=== PATIENT | male | born 1960 | race Two or more races ===

== ENCOUNTER 2018-08-10 12:20 | Emergency (ER) | payer BC ==
[2018-08-10] MEDS ORDERED: Lisinopril/Hydrochlorothiazide 10-12.5 MG Tab PO ONE ×2 (12:56→13:15)
--- NOTE | 2018-08-10 13:05 | EDM.PDOC ---
ED HPI GENERAL MEDICAL PROBLEM - General Chief Complaint: General Stated Complaint: HYPERTENSION Time Seen by Provider: 08/10/18 12:32 Source of Information: Reports: Patient History Limitations: Reports: No Limitations - History of Present Illness INITIAL COMMENTS - FREE TEXT/NARRATIVE: HISTORY AND PHYSICAL: History of present illness: Patient is a 58-year-old male who presents to the emergency room with complaints of reported high blood pressure. Prior to arrival he was attending a preemployment screening. During the examination he was informed that his blood pressure was 180s over 120s. He states he does have a history of hypertension, although had stopped the antihypertensive medications approximately 2 years ago as he states "my blood pressure was good". He states he has not taken any medication since that time. He is asymptomatic agreeable to evaluation. Patient denies any fever, chills, headache, change in vision, syncope or near syncope. Denies any chest pain, back pain, shortness of breath or cough. Denies any abdominal pain, nausea, vomiting, diarrhea, constipation or dysuria. Patient has been eating and drinking appropriately. Review of systems: As per history of present illness and below otherwise all systems reviewed and negative. Past medical history: As per history of present illness and as reviewed below otherwise noncontributory. Surgical history: As per history of present illness and as reviewed below otherwise noncontributory. Social history: See social history for further information Family history: As per history of present illness and as reviewed below otherwise noncontributory. Physical exam: General: Well-developed and well-nourished 58-year-old -[place] male. Alert and oriented. Nontoxic appearing and in no acute distress. HEENT: Atraumatic, normocephalic, pupils equal and reactive bilaterally, negative for conjunctival pallor or scleral icterus, mucous membranes moist, TMs normal bilaterally, throat clear, neck supple, nontender, trachea midline. No drooling or trismus noted. No meningeal signs. No hot potato voice noted. Lungs: Clear to auscultation, breath sounds equal bilaterally, chest nontender. Heart: S1S2, regular rate and rhythm without overt murmur Abdomen: Soft, nondistended, nontender. Negative for masses or hepatosplenomegaly. Negative for costovertebral tenderness. Pelvis: Stable nontender. Genitourinary: Deferred. Rectal: Deferred. Skin: Intact, warm, dry. No lesions or rashes noted. Extremities: Atraumatic, moves all extremities per self without difficulty or deficits, negative for cords or calf pain. Neurovascular unremarkable. Neuro: Awake, alert, oriented. Cranial nerves II through XII unremarkable. Cerebellum unremarkable. Motor and sensory unremarkable throughout. Exam nonfocal. Notes: Lab work is unremarkable. EKG is unremarkable. Blood pressure does remain elevated. He was previously on 3 different antihypertensive medications although cannot recall the other 2. Restarted the lisinopril/HCTZ. Patient is asymptomatic and would like to be discharged to home. Current BP is 163/113. Involved Dr Salvador on this case. We discussed the importance of follow-up with his primary care provider for reevaluation of his blood pressure and possible restarting the additional antihypertensive. We discussed signs and symptoms that would prompt him to return to the emergency room. Supportive care measures were reviewed and discussed. Voices understanding and is agreeable to plan of care. Denies any further questions or concerns at this time. Diagnostics: CBC, CMP, UA, EKG Therapeutics: Lisinopril/HCTZ Prescription: Lisinopril/HCTZ Impression: Hypertension Plan: 1. Lab work was normal today. 2. You have been restarted on one blood pressure medication today. With her blood pressure being as high as it was, you may need further medication management. Please follow-up with a primary care provider for reevaluation of your blood pressure and further management. 3. Return to the ED as needed and as discussed. Definitive disposition and diagnosis as appropriate pending reevaluation and review of above. - Related Data Allergies Allergy/AdvReac Type Severity Reaction Status Date / Time No Known Allergies Allergy Verified 08/10/18 12:30 Home Meds: Home Meds Lisinopril/Hydrochlorothiazide [Lisinopril-Hctz 10-12.5 mg Tab] 1 each PO DAILY #30 tablet 08/10/18 [Rx] Past Medical History - Past Health History Medical/Surgical History: Denies Medical/Surgical History Cardiovascular History: Reports: Hypertension Social & Family History - Family History Family Medical History: Noncontributory - Tobacco Use Smoking Status *Q: Never Smoker - Recreational Drug Use Recreational Drug Use: No ED ROS GENERAL - Review of Systems Review Of Systems: ROS reveals no pertinent complaints other than HPI. ED EXAM, GENERAL - Physical Exam Exam: See Below (See dictation) Course - Vital Signs Last Recorded V/S: Last Vital Signs Temp 96.9 F 08/10/18 12:26 Pulse 67 08/10/18 14:19 Resp 18 08/10/18 14:19 BP 173/126 H 08/10/18 14:19 Pulse Ox 98 08/10/18 14:19 - Orders/Labs/Meds Orders: Active Orders 24 hr Category Date Time Status EKG 12 Lead [EKG Documentation Completion] [RC] STAT Care 08/10/18 12:54 Active Labs: Laboratory Tests 08/10/18 08/10/18 08/10/18 Range/Units 13:00 13:00 13:04 WBC 4.43 (4.0-11.0) K/uL RBC 5.26 (4.50-5.90) M/uL Hgb 14.3 (13.0-17.0) g/dL Hct 43.2 (38.0-50.0) % MCV 82.1 (80.0-98.0) fL MCH 27.2 (27.0-32.0) pg MCHC 33.1 (31.0-37.0) g/dL RDW Std Deviation 43.4 (28.0-62.0) fl RDW Coeff of Marlin 15 (11.0-15.0) % Plt Count 132 L (150-400) K/uL Neut % (Auto) 47.1 L (48.0-80.0) % Lymph % (Auto) 42.7 H (16.0-40.0) % Banner % (Auto) 6.1 (0.0-15.0) % Eos % (Auto) 3.2 (0.0-7.0) % Baso % (Auto) 0.9 (0.0-1.5) % Neut # (Auto) 2.1 (1.4-5.7) K/uL Lymph # (Auto) 1.9 (0.6-2.4) K/uL Banner # (Auto) 0.3 (0.0-0.8) K/uL Eos # (Auto) 0.1 (0.0-0.7) K/uL Baso # (Auto) 0.0 (0.0-0.1) K/uL Nucleated RBC % 0.0 /100WBC Nucleated RBCs # 0 K/uL Sodium 143 (136-148) mmol/L Potassium 3.4 L (3.5-5.1) mmol/L Chloride 106 (98-107) mmol/L Carbon Dioxide 25.5 (21.0-32.0) mmol/L BUN 14 (7.0-18.0) mg/dL Creatinine 1.0 (0.8-1.3) mg/dL Est Cr Clr Drug Dosing 73.44 mL/min Estimated GFR (MDRD) > 60.0 ml/min Glucose 103 (74-106) mg/dL Calcium 8.7 (8.5-10.1) mg/dL Total Bilirubin 1.1 H (0.2-1.0) mg/dL AST 29 (15-37) IU/L ALT 42 (14-63) IU/L Alkaline Phosphatase 75 (46-116) U/L Total Protein 7.5 (6.4-8.2) g/dL Albumin 4.1 (3.4-5.0) g/dL Globulin 3.4 (2.6-4.0) g/dL Albumin/Globulin Ratio 1.2 (0.9-1.6) Urine Color YELLOW Urine Appearance CLEAR Urine pH 7.5 (5.0-8.0) Ur Specific Hampton 1.020 (1.001-1.035) Urine Protein NEGATIVE (NEGATIVE) mg/dL Urine Glucose (UA) NEGATIVE (NEGATIVE) mg/dL Urine Ketones NEGATIVE (NEGATIVE) mg/dL Urine Occult Blood NEGATIVE (NEGATIVE) Urine Nitrite NEGATIVE (NEGATIVE) Urine Bilirubin NEGATIVE (NEGATIVE) Urine Urobilinogen 0.2 (<2.0) EU/dL Ur Leukocyte Esterase NEGATIVE (NEGATIVE) Meds: Medications Discontinued Medications Generic Name Dose Route Start Last Admin Trade Name Freq PRN Reason Stop Dose Admin Lisinopril/HCTZ 1 tab 08/10/18 12:56 08/10/18 13:22 Lisinopril-Hctz 10-12.5 Mg PO 08/10/18 12:57 Not Given ONETIME ONE Hydrochlorothiazide 12.5 mg 08/10/18 13:15 08/10/18 13:11 Hydrochlorothiazide PO 08/10/18 13:16 12.5 mg ONETIME ONE Administration Lisinopril 10 mg 08/10/18 13:15 08/10/18 13:10 Prinivil PO 08/10/18 13:16 10 mg ONETIME ONE Administration Departure - Departure Time of Disposition: 14:12 Disposition: Home, Self-Care 01 Clinical Impression: Hypertension Qualifiers: Hypertension type: essential hypertension Qualified Code(s): I10 - Essential ( primary) hypertension - Discharge Information Prescriptions: Lisinopril/Hydrochlorothiazide [Lisinopril-Hctz 10-12.5 mg Tab] 1 each PO DAILY #30 tablet Instructions: Hypertension, [id number] Referrals: PCP,None [Primary Care Provider] - Forms: ED Department Discharge Additional Instructions: The following information is given to patients seen in the emergency department who are being discharged to home. This information is to outline your options for follow-up care. We provide all patients seen in our emergency department with a follow-up referral. The need for follow-up, as well as the timing and circumstances, are variable depending upon the specifics of your emergency department visit. If you don't have a primary care physician on staff, we will provide you with a referral. We always advise you to contact your personal physician following an emergency department visit to inform them of the circumstance of the visit and for follow-up with them and/or the need for any referrals to a consulting specialist. The emergency department will also refer you to a specialist when appropriate. This referral assures that you have the opportunity for follow-up care with a specialist. All of these measure are taken in an effort to provide you with optimal care, which includes your follow-up. Under all circumstances we always encourage you to contact your private physician who remains a resource for coordinating your care. When calling for follow-up care, please make the office aware that this follow-up is from your recent emergency room visit. If for any reason you are refused follow-up, please contact the [facility] Emergency Department at and asked to speak to the emergency department charge nurse. [facility] [address] [place] [id number] [address] 1. Lab work was normal today. 2. You have been restarted on one blood pressure medication today. With her blood pressure being as high as it was, you may need further medication management. Please follow-up with a primary care provider for reevaluation of your blood pressure and further management. 3. Return to the ED as needed and as discussed. - My Orders Last 24 Hours: My Active Orders 08/10/18 12:54 EKG 12 Lead [EKG Documentation Completion] [RC] STAT - Assessment/Plan Last 24 Hours: My Active Orders 08/10/18 12:54 EKG 12 Lead [EKG Documentation Completion] [RC] STAT
[2018-08-10] MEDS ORDERED: Hydrochlorothiazide 12.5 MG Cap PO ONE (13:15)
[2018-08-10] MEDS ORDERED: Lisinopril 10 MG Tab PO ONE (13:15)
[2018-08-10 13:29] LABS: CHLORIDE,CL 106 mmol/L (98-107); SODIUM,NA 143 mmol/L (136-148)
[2018-08-10 14:19] VITALS: BP 173/126
== END 2018-08-10 14:37 | disposition home or self-care (01) ==
LOC: MW.ED 12:20
DX: I10 Essential (primary) hypertension (principal); Z79.899 Other long term (current) drug therapy
CPT/HCPCS: 36415; 80053; 81003; 85025; 93005; 99285; A9270; 99283

== ENCOUNTER 2019-08-27 16:22 | Emergency (ER) | payer BC ==
[2019-08-27] MEDS ORDERED: Dexamethasone 4 MG Tab PO ONE (18:52)
--- NOTE | 2019-08-27 18:57 | EDM.PDOC ---
ED HPI GENERAL MEDICAL PROBLEM - General Chief Complaint: ENT Problem Stated Complaint: SORE THROAT Time Seen by Provider: 08/27/19 18:15 - History of Present Illness INITIAL COMMENTS - FREE TEXT/NARRATIVE: History of present illness: Patient presents with throat pain with swallowing and radiates to his right ear he denies any difficulty with breathing no cough no fevers no runny nose throat hurts when he swallows he has not taken anything for it nothing makes it better or worse Review of systems: As per history of present illness and below otherwise all systems reviewed and negative. Past medical history: As per history of present illness and as reviewed below otherwise noncontributory. Surgical history: As per history of present illness and as reviewed below otherwise noncontributory. Social history: No reported history of drug or alcohol abuse. Family history: As per history of present illness and as reviewed below otherwise noncontributory. Physical exam: HEENT: Atraumatic, normocephalic, pupils reactive, negative for conjunctival pallor or scleral icterus, mucous membranes moist, throat clear, neck supple, nontender, trachea midline. Posterior pharyngeal erythema there is no asymmetry the uvula is midline he has anterior lymphadenopathy on the right that is tender the TM on the right is normal Lungs: Clear to auscultation, breath sounds equal bilaterally, chest nontender. Heart: S1S2, regular, negative for clicks, rubs, or JVD. Abdomen: Soft, nondistended, nontender. Negative for masses or hepatosplenomegaly. Negative for costovertebral tenderness. Pelvis: Stable nontender. Genitourinary: Deferred. Rectal: Deferred. Extremities: Atraumatic, negative for cords or calf pain. Neurovascular unremarkable. Neuro: Awake, alert, oriented. Cranial nerves II through XII unremarkable. Cerebellum unremarkable. Motor and sensory unremarkable throughout. Exam nonfocal. Diagnostics: [] Therapeutics: [] Impression: Pharyngitis [] Plan: Decadron in the ED amoxicillin at home follow-up with primary care [] Definitive disposition and diagnosis as appropriate pending reevaluation and review of above. right ear/throat Pain Score (Numeric/FACES): 8 - Related Data Allergies Allergy/AdvReac Type Severity Reaction Status Date / Time No Known Allergies Allergy Verified 08/27/19 16:45 Home Meds: Home Meds Lisinopril/Hydrochlorothiazide [Lisinopril-Hctz 10-12.5 mg Tab] 1 each PO DAILY #30 tablet 08/10/18 [Rx] Amoxicillin 500 mg PO TID #30 capsule 08/27/19 [Rx] Past Medical History - Past Health History Medical/Surgical History: Denies Medical/Surgical History Cardiovascular History: Reports: Hypertension - Infectious Disease History Infectious Disease History: Reports: None Social & Family History - Family History Family Medical History: Noncontributory - Tobacco Use Smoking Status *Q: Never Smoker - Recreational Drug Use Recreational Drug Use: No ED ROS GENERAL - Review of Systems Review Of Systems: See Below ED EXAM, GENERAL - Physical Exam Exam: See Below Course - Vital Signs Last Recorded V/S: Last Vital Signs Temp 36.3 C 08/27/19 16:45 Pulse 89 08/27/19 16:45 Resp 18 08/27/19 16:45 BP 194/128 H 08/27/19 16:45 Pulse Ox 97 08/27/19 16:45 - Orders/Labs/Meds Meds: Medications Discontinued Medications Generic Name Dose Route Start Last Admin Trade Name Maurilio PRN Reason Stop Dose Admin Dexamethasone 8 mg 08/27/19 18:52 Dexamethasone PO 08/27/19 18:53 ONETIME ONE Departure - Departure Time of Disposition: 18:55 Disposition: DC/Tfer to [facility] [id number] Condition: Good Clinical Impression: Pharyngitis - Discharge Information *PRESCRIPTION DRUG MONITORING PROGRAM REVIEWED*: Not Applicable *COPY OF PRESCRIPTION DRUG MONITORING REPORT IN PATIENT RICCARDO: Not Applicable Instructions: Pharyngitis, [id number] Referrals: PCP,None [Primary Care Provider] - Additional Instructions: The following information is given to patients seen in the emergency department who are being discharged to home. This information is to outline your options for follow-up care. We provide all patients seen in our emergency department with a follow-up referral. The need for follow-up, as well as the timing and circumstances, are variable depending upon the specifics of your emergency department visit. If you don't have a primary care physician on staff, we will provide you with a referral. We always advise you to contact your personal physician following an emergency department visit to inform them of the circumstance of the visit and for follow-up with them and/or the need for any referrals to a consulting specialist. The emergency department will also refer you to a specialist when appropriate. This referral assures that you have the opportunity for follow-up care with a specialist. All of these measure are taken in an effort to provide you with optimal care, which includes your follow-up. Under all circumstances we always encourage you to contact your private physician who remains a resource for coordinating your care. When calling for follow-up care, please make the office aware that this follow-up is from your recent emergency room visit. If for any reason you are refused follow-up, please contact the [facility] Emergency Department at and asked to speak to the emergency department charge nurse. [facility] [address] [place] [id number] [facility] [address] [place] [id number] Sepsis Event Note (ED) - Evaluation Sepsis Screening Result: No Definite Risk - Focused Exam Vital Signs: Vital Signs Temp Pulse Resp BP Pulse Ox 08/27/19 16:45 36.3 C 89 18 194/128 H 97
[2019-08-27] MEDS ORDERED: Amoxicillin 250 MG/5 ML Susp 150 ML Bottle PO ONE (19:07)
[2019-08-27] MEDS ORDERED: Amoxicillin 500 MG Cap ONE (19:10)
[2019-08-27] MEDS ORDERED: Amoxicillin 500 MG Cap PO ONE (19:14)
[2019-08-28 00:13] VITALS: BP 199/115; PULSE 88
== END 2019-08-27 19:11 ==
LOC: MW.ED 16:22
DX: J02.9 Acute pharyngitis, unspecified (principal); I10 Essential (primary) hypertension; Z79.899 Other long term (current) drug therapy
CPT/HCPCS: 99282; A9270; J8540

== ENCOUNTER 2019-08-28 21:08 | Emergency (ER) | payer BC ==
[2019-08-28] MEDS ORDERED: Morphine 4 MG/ML Syringe IVPUSH ONE (21:45)
[2019-08-28] MEDS ORDERED: Ketorolac 15 MG/ML SDV IVPUSH ONE (21:45)
[2019-08-28] MEDS ORDERED: Sodium Chloride 0.9% 10 ML Syringe FLUSH PRN (21:45)
[2019-08-28] MEDS ORDERED: Sodium Chloride 0.9% 2.5 ML Syringe FLUSH PRN (21:45)
[2019-08-28] MEDS ORDERED: Lactated Ringers 1,000 ML IV ONE (21:45)
--- NOTE | 2019-08-28 21:48 | EDM.PDOC ---
ED HPI GENERAL MEDICAL PROBLEM - General Chief Complaint: ENT Problem Stated Complaint: PHARYNGITIS WORSENING Time Seen by Provider: 08/28/19 21:23 Source of Information: Reports: Patient History Limitations: Reports: No Limitations - History of Present Illness INITIAL COMMENTS - FREE TEXT/NARRATIVE: 59-year-old male with history of hypertension presents with persistent sore th roat for 2 days. He was seen here 2 days ago and prescribed amoxicillin. Symptoms have not improved. Pain is moderate, constant, non-radiating, exacerbated by swallowing, and associated with difficulty swallowing. He denies fever, chills, nausea. CP, SOB, Cough. He took his HTN meds today. ROS: A 10-point review of systems, other than pertinent positives and negatives as stated per HPI, is otherwise negative PHYSICAL EXAM General: AOx4, GCS = 15, moderate distress HEENT: mild hoarseness, dry mucous membrane, right peritonsillar swelling. tender to right parotid gland, no stridor, no tenderness or induration in the submandibular space. Mallampati score = 3 Neck: supple, no meningismus, no Kernig or Brudzinski Cardiac: S1S2 tachycardia Respiratory: CTAB, no crackles or rales, no wheezing Abdomen: Soft, nontender, no rebound or guarding, nondistended, no pulsatile mass. Back: nontender Musculoskeletal: NVI distally, no deformity Neuro: No focal deficits Right Face/Facial Pain Score (Numeric/FACES): 10 - Related Data Allergies Allergy/AdvReac Type Severity Reaction Status Date / Time No Known Allergies Allergy Verified 08/28/19 21:24 Home Meds: Home Meds Lisinopril/Hydrochlorothiazide [Lisinopril-Hctz 10-12.5 mg Tab] 1 each PO DAILY #30 tablet 08/10/18 [Rx] Amoxicillin 500 mg PO TID #30 capsule 08/27/19 [Rx] Past Medical History - Past Health History Medical/Surgical History: Denies Medical/Surgical History HEENT History: Reports: None Cardiovascular History: Reports: Hypertension Respiratory History: Reports: None Gastrointestinal History: Reports: None Genitourinary History: Reports: None Musculoskeletal History: Reports: None Neurological History: Reports: None Psychiatric History: Reports: None Endocrine/Metabolic History: Reports: None Hematologic History: Reports: None Immunologic History: Reports: None Oncologic (Cancer) History: Reports: None Dermatologic History: Reports: None - Infectious Disease History Infectious Disease History: Reports: None - Past Surgical History Head Surgeries/Procedures: Reports: None Social & Family History - Family History Family Medical History: Noncontributory - Tobacco Use Smoking Status *Q: Never Smoker Second Hand Smoke Exposure: No - Caffeine Use Caffeine Use: Reports: None - Recreational Drug Use Recreational Drug Use: No ED ROS ENT - Review of Systems Review Of Systems: Comprehensive ROS is negative, except as noted in HPI. ED EXAM, ENT - Physical Exam Exam: See Below (see dictation) Course - Vital Signs Last Recorded V/S: Last Vital Signs Temp 100.2 F 08/28/19 21:28 Pulse 102 H 08/29/19 00:08 Resp 16 08/28/19 23:12 BP 164/87 H 08/29/19 00:08 Pulse Ox 95 08/28/19 23:12 - Orders/Labs/Meds Orders: Active Orders 24 hr Category Date Time Status Clindamycin Phosphate [Cleocin] 600 mg Med 08/29/19 00:41 Ordered Sodium Chloride 0.9% [Normal Saline] 50 ml IV ONETIME Sodium Chloride 0.9% [Saline Flush] Med 08/28/19 21:45 Active 10 ml FLUSH ASDIRECTED PRN Sodium Chloride 0.9% [Saline Flush] Med 08/28/19 21:45 Active 2.5 ml FLUSH ASDIRECTED PRN Saline Lock Insert [OM.PC] Stat Oth 08/28/19 21:45 Ordered Medication Orders Clindamycin Phosphate 600 mg/ (Sodium Chloride) 54 mls @ 100 mls/hr IV ONETIME ONE Stop: 08/29/19 01:13 Sodium Chloride (Saline Flush) 10 ml FLUSH ASDIRECTED PRN PRN Reason: Keep Vein Open Last Admin: 08/28/19 22:22 Dose: 10 ml Documented by: JAKE Sodium Chloride (Saline Flush) 2.5 ml FLUSH ASDIRECTED PRN PRN Reason: Keep Vein Open Last Admin: 08/28/19 22:21 Dose: 2.5 ml Documented by: [email or web address] Labs: Laboratory Tests 08/28/19 08/28/19 Range/Units 22:10 22:55 WBC 11.57 H (4.0-11.0) K/uL RBC 5.64 (4.50-5.90) M/uL Hgb 16.4 (13.0-17.0) g/dL Hct 48.3 (38.0-50.0) % MCV 85.6 (80.0-98.0) fL MCH 29.1 (27.0-32.0) pg MCHC 34.0 (31.0-37.0) g/dL RDW Std Deviation 46.2 (28.0-62.0) fl RDW Coeff of Marlin 15 (11.0-15.0) % Plt Count 161 (150-400) K/uL Neut % (Auto) 77.0 (48.0-80.0) % Lymph % (Auto) 9.4 L (16.0-40.0) % [place] % (Auto) 13.5 (0.0-15.0) % Eos % (Auto) 0.0 (0.0-7.0) % Baso % (Auto) 0.1 (0.0-1.5) % Neut # (Auto) 8.9 H (1.4-5.7) K/uL Lymph # (Auto) 1.1 (0.6-2.4) K/uL [place] # (Auto) 1.6 H (0.0-0.8) K/uL Eos # (Auto) 0.0 (0.0-0.7) K/uL Baso # (Auto) 0.0 (0.0-0.1) K/uL Nucleated RBC % 0.0 /100WBC Nucleated RBCs # 0 K/uL Sodium 140 (136-148) mmol/L Potassium 4.1 (3.5-5.1) mmol/L Chloride 103 (98-107) mmol/L Carbon Dioxide 25.7 (21.0-32.0) mmol/L BUN 24 H (7.0-18.0) mg/dL Creatinine 1.6 H (0.8-1.3) mg/dL Est Cr Clr Drug Dosing 42.17 mL/min Estimated GFR (MDRD) 53.5 ml/min Glucose 140 H (74-106) mg/dL Calcium 8.9 (8.5-10.1) mg/dL Total Bilirubin 1.2 H (0.2-1.0) mg/dL AST 28 (15-37) IU/L ALT 22 (14-63) IU/L Alkaline Phosphatase 45 L (46-116) U/L Total Protein 7.1 (6.4-8.2) g/dL Albumin 3.5 (3.4-5.0) g/dL Globulin 3.6 (2.6-4.0) g/dL Albumin/Globulin Ratio 1.0 (0.9-1.6) Meds: Medications Generic Name Dose Route Start Last Admin Trade Name Freq PRN Reason Stop Dose Admin Clindamycin Phosphate 600 mg/ 54 mls @ 100 mls/hr 08/29/19 00:41 Sodium Chloride IV 08/29/19 01:13 ONETIME ONE Sodium Chloride 10 ml 08/28/19 21:45 08/28/19 22:22 Saline Flush FLUSH 10 ml ASDIRECTED PRN Administration Keep Vein Open Sodium Chloride 2.5 ml 08/28/19 21:45 08/28/19 22:21 Saline Flush FLUSH 2.5 ml ASDIRECTED PRN Administration Keep Vein Open Discontinued Medications Generic Name Dose Route Start Last Admin Trade Name Freq PRN Reason Stop Dose Admin Dexamethasone 8 mg 08/29/19 00:40 Dexamethasone IVPUSH 08/29/19 00:41 ONETIME ONE Lactated Ringer's 1,000 mls @ 999 mls/hr 08/28/19 21:45 08/28/19 22:20 Ringers, Lactated IV 08/28/19 22:45 999 mls/hr .BOLUS ONE Administration Iopamidol 75 ml 08/29/19 00:13 08/29/19 00:15 Isovue-370 (76%) IVPUSH 08/29/19 00:14 75 ml ONETIME STA Administration Ketorolac Tromethamine 15 mg 08/28/19 21:45 08/28/19 22:20 Toradol IVPUSH 08/28/19 21:46 15 mg ONETIME ONE Administration Metoprolol Tartrate 5 mg 08/28/19 23:53 08/29/19 00:08 Lopressor IVPUSH 08/28/19 23:54 5 mg ONETIME ONE Administration Morphine Sulfate 4 mg 08/28/19 21:45 08/28/19 22:21 Morphine IVPUSH 08/28/19 21:46 4 mg ONETIME ONE Administration - Re-Assessments/Exams Free Text/Narrative Re-Assessment/Exam: 08/29/19 00:50 -I reviewed the CT report concerning for early epiglottitis, he will require transfer to outside facility for possible need for home service consultant services unavailable at this facility. Any emergency conditions have been stabilized to the ability of the ED prior to the transfer. I discussed with Dr. Newton Figueroa at [facility], he will accept transfer. Patient was given IV fluids, clindamycin, dexamethasone in the ER. MEDICAL DECISION MAKING: I reviewed the patients past medical records, lab and radiographic findings. I discussed the case with the patient. My differential diagnosis included: Peritonsillar abscess, tonsillitis, retropharyngeal abscess, epiglottitis, parotitis. Patient's creatinine today was 1.6, consistent with his baseline creatinine of 1.6 on 01/26/19. His blood pressure was elevated in the ER here, likely mediated by pain, he was given [address] demonstrated findings concerning for early epiglottitis, he will likely need ENT consultation given his presentation today. He is not stridorous or in tripod position or drooling or in respiratory distress, he is not hypoxic, I do not think he needs emergent intubation at this time. Departure - Departure Time of Disposition: 01:00 Disposition: DC/Tfer to Other 70 Condition: Fair Clinical Impression: Pharyngitis, Epiglottitis, Parotitis - Discharge Information *PRESCRIPTION DRUG MONITORING PROGRAM REVIEWED*: Not Applicable *COPY OF PRESCRIPTION DRUG MONITORING REPORT IN PATIENT RICCARDO: Not Applicable Referrals: [facility] [Primary Care Provider] - Forms: ED Department Discharge Critical Care Note - Critical Care Note Total Time (mins): 40 Comments: Critical Care: The high probability of sudden, clinically significant deterioration in the patient's condition required the highest level of my preparedness to intervene urgently. The services I provided to this patient were to treat and/or prevent clinically significant deterioration. Services included the following: chart data review, reviewing nursing notes and/or old charts, documentation time, health care consultant collaboration regarding findings and treatment options, medication orders and management, direct patient care, vital sign assessments and ordering, interpreting and reviewing diagnostic studies/lab tests. Aggregate critical care time includes only time during which I was engaged in work directly related to the patient's care, as described above, whether at the bedside or elsewhere in the Emergency Department. It did not include time spent performing other reported procedures or the services of residents, students, nurses or physician assistants. Frequent interventions and/or frequent repeat evaluations were required as well as counseling and coordination of care regarding prognosis, treatments, and discussions with patient, staff and consultants. Critical Care (excluding other procedures): 40 minutes Sepsis Event Note (ED) - Evaluation Sepsis Screening Result: No Definite Risk - Focused Exam Vital Signs: Vital Signs Temp Pulse Pulse Resp BP BP Pulse Ox 08/29/19 00:08 102 H 164/87 H 08/28/19 23:12 95 16 182/102 H 95 08/28/19 21:28 100.2 F 117 H 197/127 H 08/28/19 21:23 97.8 F 109 H 20 202/107 H 97 - My Orders Last 24 Hours: My Active Orders 08/28/19 21:45 Sodium Chloride 0.9% [Saline Flush] 10 ml FLUSH ASDIRECTED PRN Sodium Chloride 0.9% [Saline Flush] 2.5 ml FLUSH ASDIRECTED PRN Saline Lock Insert [OM.PC] Stat 08/29/19 00:41 Clindamycin Phosphate [Cleocin] 600 mg Sodium Chloride 0.9% [Normal Saline] 50 ml IV ONETIME - Assessment/Plan Last 24 Hours: My Active Orders 08/28/19 21:45 Sodium Chloride 0.9% [Saline Flush] 10 ml FLUSH ASDIRECTED PRN Sodium Chloride 0.9% [Saline Flush] 2.5 ml FLUSH ASDIRECTED PRN Saline Lock Insert [OM.PC] Stat 08/29/19 00:41 Clindamycin Phosphate [Cleocin] 600 mg Sodium Chloride 0.9% [Normal Saline] 50 ml IV ONETIME
[2019-08-28 23:37] LABS: CARBON DIOXIDE,CO2 25.7 mmol/L (21.0-32.0); POTASSIUM,K 4.1 mmol/L (3.5-5.1)
[2019-08-28] MEDS ORDERED: Metoprolol Tartrate 5 MG/5 ML SDV IVPUSH ONE (23:53)
[2019-08-29] MEDS ORDERED: Iopamidol 755 Mg/ML 100 ML Bottle IVPUSH STA (00:13)
--- NOTE | 2019-08-29 00:31 | CT ---
INDICATION: Worsening pharyngitis. CT NECK WITH CONTRAST TECHNIQUE: Axial multidetector CT imaging was performed through the neck following intravenous contrast administration using 75 mL Isovue 370. Coronal and sagittal reconstructions were generated. FINDINGS: There is extensive diffuse inflammatory soft tissue thickening involving the right lateral wall of the pharynx and the prevertebral soft tissues. There is associated mass effect with effacement of the right piriform sinus and mild leftward shift of the airway. The epiglottis also appears thickened. Hypodense changes consistent with edema are present within the right pharyngeal wall. No discrete fluid collection is identified to suggest a drainable abscess. No abnormally enlarged lymph nodes are seen. There is moderate diffuse enlargement of the right parotid with diffuse mild hyperenhancement within the gland, suggesting parotitis. The left parotid, submandibular, and thyroid glands are unremarkable. Cervical vascular structures are within normal limits. Included bones are unremarkable aside from multilevel cervical spondylosis. Included paranasal sinuses are clear aside from a small polyp or retention cyst in the sphenoid sinus on the right. Included skull base and lung apices are unremarkable. IMPRESSION: 1. Severe pharyngitis as detailed above, most markedly involving the right lateral wall of pharynx. 2. No discrete fluid collection suggestive of a drainable abscess. 3. Mildly enlarged and hyperenhancing right parotid, consistent with parotitis. DARRELL CARR MD [employer] Dictated by Jose Carr MD @ 08/29/2019 12:26:38 AM Dictated by: Jose Carr MD @ 08/29/2019 00:28:59 (Electronically Signed)
[2019-08-29] MEDS ORDERED: Dexamethasone 10 MG/ML SDV IVPUSH ONE (00:40)
[2019-08-29] MEDS ORDERED: Clindamycin Phosphate in D5W 50 ML ONE (00:51)
[2019-08-29] MEDS ORDERED: Clindamycin Phosphate in D5W 600 MG in Premix Bag 1 BAG IV ONE ×2 (00:56)
[2019-08-29 01:46] VITALS: BP 182/107; PULSE 96
== END 2019-08-29 01:30 | disposition other institution (70) ==
LOC: MW.ED 21:08
DX: J02.9 Acute pharyngitis, unspecified (principal); J05.10 Acute epiglottitis without obstruction; K11.20 Sialoadenitis, unspecified; I10 Essential (primary) hypertension; Z79.899 Other long term (current) drug therapy
CPT/HCPCS: 36415; 70491; 80053; 85025; 96365; 96375; 99285; J1100; J1885; J2270; J3490; J7120; Q9967; S0077; 99291